=== PATIENT | female | born 1975 | race Two or more races ===

== ENCOUNTER 2020-04-09 16:56 | Inpatient (IN) | payer MEDICAID ==
[~2020-04-09] VITALS: Ht 162.6 cm; Wt 41.7 kg
--- NOTE | 2020-04-09 17:24 | NUR ---
RHIANNA MALLORY AT BEDSIDE FOR EVAL.
[2020-04-09] MEDS ORDERED: ACETAMINOPHEN ES 500 MG TABLET PO ONE (17:30)
[2020-04-09] MEDS ORDERED: VANCOMYCIN 1 GM in IV D5W 250 ML IV ONE (17:30)
[2020-04-09] MEDS ORDERED: IV NS 0.9% 1,000 ML BAG IV ONE (17:30)
[2020-04-09] MEDS ORDERED: LISI-603 PO (17:59)
[2020-04-09] MEDS ORDERED: TOPI200T PO (17:59)
[2020-04-09] MEDS ORDERED: HIV MEDS (17:59)
[2020-04-09] MEDS ORDERED: FERR325T28 PO (17:59)
[2020-04-09] MEDS ORDERED: ACETAMINOPHEN ES 500 MG TABLET ONE (17:59)
[2020-04-09] MEDS ORDERED: CLON2TAB11 PO (17:59)
[2020-04-09 18:02] LABS: BASOPHILS % (AUTO) 0.2 % (0.0-2.0); EOSINOPHILS % (AUTO) 2.8 % (0.0-6.0); HEMATOCRIT 25 % (33-45); HEMOGLOBIN 7.7 g/dL (11.5-14.8); LYMPHOCYTES # (AUTO) 1.6 /CMM (0.8-4.8); LYMPHOCYTES % (AUTO) 13.9 % (20.0-44.0); MEAN CORPUSCULAR HGB CONC 30 g/dl (31.0-36.0); MEAN CORPUSCULAR VOLUME 72 fL (82-100); MONOCYTES # (AUTO) 0.8 /CMM (0.1-1.30); MONOCYTES % (AUTO) 6.9 % (2.0-12.0); NEUTROPHILS % (AUTO) 76.2 % (43.0-81.0); PLATELET COUNT (AUTO) 508 /CMM (150-450); WHITE BLOOD COUNT (AUTO) 11.8 K/uL (4.3-11.0)
[2020-04-09 18:14] LABS: CALCIUM, SERUM 7.7 mg/dL (8.5-10.1); CREATININE 0.8 mg/dL (0.6-1.3); POTASSIUM 3.4 mmol/L (3.5-5.1)
[2020-04-09 18:20] LABS: ALBUMIN 1.6 g/dL (3.4-5.0); BILIRUBIN,DIRECT 0.1 mg/dL (0.0-0.2); BILIRUBIN,TOTAL 0.1 mg/dL (0.2-1.0); TOTAL PROTEIN, SERUM 6.6 g/dL (6.4-8.2)
--- NOTE | 2020-04-09 18:35 | NUR ---
PT TO RADIOLOGY FOR R LOWER EXTREMITY CT SCAN
[2020-04-09] MEDS ORDERED: ONDANSETRON HCL/PF 4 MG/2 ML VIAL IV ONE (19:00)
[2020-04-09] MEDS ORDERED: MORPHINE SULFATE INJ 2 MG/ML DISP.SYRIN IV ONE (19:00)
--- NOTE | 2020-04-09 19:15 | NUR ---
Endorsed to Kailee PEREZ for continuity of care
[2020-04-09] MEDS ORDERED: ONDANSETRON HCL/PF 4 MG/2 ML VIAL ONE (19:27)
[2020-04-09] MEDS ORDERED: MORPHINE SULFATE INJ 4 MG/ML DISP.SYRIN ONE (19:27)
--- NOTE | 2020-04-09 19:57 | NUR ---
lab called regarding negative covid result.
--- NOTE | 2020-04-09 20:39 | NUR ---
REPORT GIVEN TO ANA KAMARA FOR DYLON
[2020-04-09] MEDS ORDERED: Z GUARD REMEDY 2 OZ OINT TP PRN (21:00)
[2020-04-09] MEDS ORDERED: IV NS 0.9% 1,000 ML IV PRN (21:00)
[2020-04-09] MEDS ORDERED: MAG HYDROX/AL HYDROX/SIMETH 30 ML UDC PO PRN (21:00)
[2020-04-09] MEDS ORDERED: ZOLPIDEM TARTRATE 5 MG TABLET PO PRN (21:00)
[2020-04-09] MEDS ORDERED: ACETAMINOPHEN 325 MG TABLET PO PRN (21:00)
[2020-04-09] MEDS ORDERED: ONDANSETRON HCL/PF 4 MG/2 ML VIAL IVP PRN (21:00)
--- NOTE | 2020-04-09 21:02 | NUR ---
PT TRANSFERRED TO ROOM IN STABLE CONDITION
[2020-04-09 21:21] LABS: BAND % (MANUAL) 2 % (0.0-5.0); EOSINOPHILS % (MANUAL) 3 % (0-4); LYMPHOCYTES % (MANUAL) 11 % (16-48); MONOCYTES % (MANUAL) 6 % (0-11.0); NEUTROPHILS % (MANUAL) 78 (42-76)
[2020-04-09] MEDS ORDERED: SOD FERRIC GLUC 125 MG in IV NS 0.9% 100 ML IV ONE (21:30)
--- NOTE | 2020-04-09 21:30 | NUR ---
ADMITTING NOTES ADMITTED PATIENT, TRANSPORTED FROM ER, AWAKE ALERT ORIENTED X4, NO SIGNS OF ACUTE CARDIAC OR RESPIRATORY DISTRESS NOTED, ADMITTING PROCESS INITIATED, SKIN ASSESSMENT DONE AND PHOTOS TAKEN PLACED IN PATIENT'S CHART. ORIENTED TO UNIT AND THE USE OF CALL LIGHT. PERIPHERAL IV ACCESS INTACT AND PATENT. DENIES SEVERE PAIN, PAIN IS TOLERABLE AT THIS TIME. KEEP CLEAN WARM DRY AND COMFORTABLE. ASPIRATION PRECAUTION EMPHASIZED. ALL NEEDS ANTICIPATED. WILL ENDORSE TO AM NURSE FOR CONTINUITY OF CARE.
[2020-04-09 22:30] VITALS: BP 143/87
[2020-04-09] MEDS ORDERED: clonazePAM 2 MG TABLET PO PRN (22:30)
[2020-04-09 22:57] VITALS: BP 143/87
[2020-04-09] MEDS: PANTOPRAZOLE 40 MG VIAL IV SCH (23:07)
--- NOTE | 2020-04-09 23:31 | NUR ---
RN NOTES SPOKE WITH THE [facility] PHARMACIST TO CHANGE THE TIME FOR THE FERRLECIT 125 MG IV ORDER, [facility]HOU[facility] IS CLOSED AT THIS TIME. PHARMACIST WILL MODIFY THE TIME.
[2020-04-10] MEDS ORDERED: VANCOMYCIN 1 GM VIAL ONE (04:23)
[2020-04-10] MEDS: HYDROMORPHONE INJ 2 MG/ML DISP.SYRIN IV PRN ×3 (04:33→20:05)
[2020-04-10] MEDS ORDERED: VANCOMYCIN 1 GM in IV D5W 250 ML IV SCH ×4 (06:00)
[2020-04-10] MEDS ORDERED: VANCOMYCIN 1 GM in IV D5W 250ml IV SCH ×2 (06:00→09:00)
[2020-04-10 06:37] LABS: BASOPHILS % (AUTO) 0.3 % (0.0-2.0); LYMPHOCYTES # (AUTO) 1.1 /CMM (0.8-4.8); MONOCYTES # (AUTO) 0.4 /CMM (0.1-1.30); MONOCYTES % (AUTO) 5.4 % (2.0-12.0)
[2020-04-10 06:58] LABS: BILIRUBIN,TOTAL 0.1 mg/dL (0.2-1.0); CALCIUM, SERUM 7.2 mg/dL (8.5-10.1); CREATININE 0.7 mg/dL (0.6-1.3); MAGNESIUM 1.7 mg/dL (1.8-2.4); PHOSPHORUS 2.3 mg/dL (2.5-4.9); POTASSIUM 3.5 mmol/L (3.5-5.1)
[2020-04-10 07:08] LABS: ALBUMIN 1.3 g/dL (3.4-5.0)
--- NOTE | 2020-04-10 07:18 | NUR ---
MS RN NOTES ALL NEEDS ATTENDED AND MET, ABLE TO REST AND SLEPT AT INTERVALS. NO SIGNS OF DISTRESS NOTED. IV ACCESS ON THE RIGHT UPPER ARM WAS OUT, RE INSERTED A NEW SITE AT LEFT FOREARM G#24 PER PATIENT REQUEST. SAFETY MEASURES IN PLACE, ASPIRATION PRECAUTION EMPHASIZED. CALL LIGHT WITHIN EASY REACH. ENDORSED TO AM NURSE FOR CONTINUITY OF CARE.
--- NOTE | 2020-04-10 07:40 | NUR ---
MS RN NOTES LAB CALLED WITH CRITICAL RESULT FOR LACTIC ACID OF 2.6 SOON DOCTORS LIST IS READY WILL NOTIFY .
[2020-04-10 07:50] LABS: EOSINOPHILS % (AUTO) 2.8 % (0.0-6.0); HEMATOCRIT 24 % (33-45); HEMOGLOBIN 7.4 g/dL (11.5-14.8); MEAN CORPUSCULAR HGB CONC 31 g/dl (31.0-36.0); MEAN CORPUSCULAR VOLUME 72 fL (82-100); NEUTROPHILS # (AUTO) 6.4 /CMM (1.8-8.9); NEUTROPHILS % (AUTO) 78.5 % (43.0-81.0); PLATELET COUNT (AUTO) 448 /CMM (150-450); RED BLOOD CELL COUNT(AUTO) 3.33 MIL/uL (4.0-5.2); WHITE BLOOD COUNT (AUTO) 8.2 K/uL (4.3-11.0)
[2020-04-10 08:00] VITALS: BP 114/83
--- NOTE | 2020-04-10 08:03 | NUR ---
MS RN OPENING NOTES RECEIVED PATIENT IN BED, AWAKE, A/O X 4. PATIENT IS ON ROOM AIR; BREATHING IS EVEN AND UNLABORED; NO SOB PRESENT AT THIS TIME. MILD PAIN AT THE MOMENT. LFA IV ACCESS G# 24 WITH RUNNING NS AT 100 MLS/HR. SAFETY PRECAUTIONS IN PLACE; BED IN LOW POSITION AND LOCKED, RAILS UP X3, CALL LIGHT WITHIN REACH. WILL CONTINUE TO MONITOR PATIENT.
--- NOTE | 2020-04-10 08:50 | NUR ---
MS RN NOTES 0600 VANCO RUNNING BUT LOOKS LIKE HAS NEVER BEEN SCANNED.
[2020-04-10] MEDS: FERROUS SULFATE (325 MG) 325 MG/TAB TABLET PO SCH (08:59)
[2020-04-10] MEDS ORDERED: TOPIRAMATE PO SCH (09:00)
[2020-04-10] MEDS: HYDROCODONE/APAP 5/325MG TABLET PO PRN (09:00)
[2020-04-10] MEDS ORDERED: LISINOPRIL (5MG) 5 MG TABLET PO SCH (09:00)
--- NOTE | 2020-04-10 09:04 | NUR ---
MS RN NOTES PATIENT COMPLAINING OF PAIN 12/16. PRN NORCO 5-325 ADMINISTERED FOR PAIN IN THE LEG. WILL REASSESS.
[2020-04-10] MEDS ORDERED: SOD FERRIC GLUC 125 MG in IV NS 0.9% 100 ML IV ONE ×2 (10:00→14:00)
[2020-04-10] MEDS ORDERED: Biktarvy XX SCH (10:00)
[2020-04-10] MEDS ORDERED: MAGNESIUM OXIDE 400 MG TABLET PO ONE (10:30)
[2020-04-10] MEDS ORDERED: MORPHINE SULFATE INJ 2 MG/ML DISP.SYRIN SQ PRN (11:00)
[2020-04-10] MEDS ORDERED: LISI2.5T2 PO (11:11)
[2020-04-10] MEDS ORDERED: FAMO-131 PO (11:11)
[2020-04-10] MEDS ORDERED: NITR100C PO (11:11)
[2020-04-10] MEDS ORDERED: ASCO500T21 PO (11:11)
[2020-04-10] MEDS ORDERED: DOCU-141 PO (11:11)
[2020-04-10] MEDS ORDERED: LORA-259 PO (11:11)
[2020-04-10] MEDS ORDERED: LEVE1000 PO (11:11)
[2020-04-10] MEDS ORDERED: BICT1TAB PO (11:11)
[2020-04-10] MEDS: ENSURE ENLIVE CHOC 237 ML CAN PO SCH ×2 (13:00→17:00)
[2020-04-10 16:00] VITALS: BP 101/65
[2020-04-10] MEDS ORDERED: K PHOS NEUTRAL 250 MG TABLET PO ONE (16:00)
[2020-04-10] MEDS: VANCOMYCIN 1 GM in IV D5W 250ml IV SCH (17:04)
[2020-04-10] MEDS: HYDROCODONE/APAP 10/325MG TABLET PO PRN (17:19)
--- NOTE | 2020-04-10 18:54 | NUR ---
MS RN CLOSING NOTES PATIENT IN BED, AWAKE, A/O X 4. PATIENT IS ON ROOM AIR; BREATHING IS EVEN AND UNLABORED; NO SOB PRESENT DURI NG SHIFT. PAIN TREATED WITH PRN MEDICATION DURING SHIFT. LFA IV ACCESS G# 24 WITH RUNNING NS AT 100 MLS/HR. ALL NEEDS ATTENDED THROUGHOUT THE DAY. SAFETY PRECAUTIONS IN PLACE; BED IN LOW POSITION AND LOCKED, RAILS UP X3, CALL LIGHT WITHIN REACH. WILL ENDORSE TO MARKETING OFFICER NURSE.
[2020-04-10] MEDS ORDERED: SILVER SULFADIAZINE CREAM 400 GM JAR TP SCH (19:30)
--- NOTE | 2020-04-10 19:30 | NUR ---
ms rn opening note received patient in bed. a/ox4. tolerating room air. respirations even and unlabored. no s/s sob noted. c/o pain at this time. informed her will need to have department chairperson obtain vitals and check medication list if it is time for pain medication. patient acknowledged. refused labs as she would like her pain medication. informed lab will call them after administering pain medication. in no apparent distress. iv access in LFA#24 patent and saline locked. patient states there is pain, will change iv site. bed is low and locked, hob elevated in semi fowlers, side rails up x2. call light within reach. will continue to monitor.
[2020-04-10] MEDS ORDERED: CEFTRIAXONE 1 G VIAL ONE (19:48)
[2020-04-10] MEDS: CEFTRIAXONE 1 G in IV D5W 50 ML IV SCH (19:51)
--- NOTE | 2020-04-10 19:52 | NUR ---
MS RN NOTE CHARGE NURSE OVERRIDE MEDICATION FOR ROCEPHIN 1GM FROM [facility] D/T IN HOUSE PHARM[facility]Y NOT HERE AFTER ORDER WAS PLACED. SILVADENE ORDER FAXED TPO NURSING PEN MAKER, AWAITING FOR MEDICATION. WILL CONTINUE TO MONITOR.
[2020-04-10 20:00] VITALS: BP 112/74
[2020-04-10] MEDS: PANTOPRAZOLE 40 MG VIAL IV SCH (20:01)
[2020-04-10] MEDS: IV NS 0.9% 1,000 ML IV PRN (20:04)
[2020-04-10 20:10] VITALS: BP 112/74
--- NOTE | 2020-04-10 21:35 | NUR ---
ms rn note nursing supervisor machine workers stated the medication is not available in night locker. will need to get from pharmacy tomorrow. will endorse to next shift. will continue to monitor.
[2020-04-11] MEDS: HYDROMORPHONE INJ 2 MG/ML DISP.SYRIN IV PRN ×6 (00:59→22:39)
--- NOTE | 2020-04-11 00:59 | NUR ---
ms rn note administered prn Dilaudid 2mg for pain 10/10 , generalized. will continue to monitor.
[2020-04-11] MEDS: IV NS 0.9% 1,000 ML IV PRN ×2 (05:56→19:31)
--- NOTE | 2020-04-11 06:25 | NUR ---
ms rn closing note patient in bed. a/ox4. tolerating room air. no resp distress. managed pain with Dilaudid throughout shift. no distress noted. iv access in RFA#20 running NS @150ml/hr. bed remains low and locked, hob elevated in semi fowlers, side rails up x2. call light within reach. will endorse to next shift.
--- NOTE | 2020-04-11 06:46 | NUR ---
ms rn note called lab to run vanco trough needed for vanco dose scheduled at 0600. will continue to monitor.
--- NOTE | 2020-04-11 07:09 | NUR ---
ms rn note endorse to AM shift to follow up on vanco trough and hang vanco.
[2020-04-11 07:26] LABS: CALCIUM, SERUM 7.6 mg/dL (8.5-10.1); CREATININE 0.6 mg/dL (0.6-1.3); MAGNESIUM 1.8 mg/dL (1.8-2.4); PHOSPHORUS 3.2 mg/dL (2.5-4.9); POTASSIUM 3.6 mmol/L (3.5-5.1)
--- NOTE | 2020-04-11 07:53 | NUR ---
RN OPENING NOTE Patient is resting in bed, A/O x4, showing no signs of acute distress or SOB, stable on RA. IV line in the RFA#20g clean and intact flushing well. Patient has no complaints of pain at this time. Bed is in lowest position, side rails x3 in upright position, call light is within reach, fall safety and aspiration precautions enforced. Will continue with plan of care.
[2020-04-11 08:00] VITALS: BP 106/75
[2020-04-11 08:05] LABS: BASOPHILS % (AUTO) 0.2 % (0.0-2.0); EOSINOPHILS % (AUTO) 2.3 % (0.0-6.0); HEMATOCRIT 24 % (33-45); HEMOGLOBIN 7.3 g/dL (11.5-14.8); LYMPHOCYTES # (AUTO) 1.2 /CMM (0.8-4.8); LYMPHOCYTES % (AUTO) 14.4 % (20.0-44.0); MEAN CORPUSCULAR HGB CONC 31 g/dl (31.0-36.0); MEAN CORPUSCULAR VOLUME 71 fL (82-100); MONOCYTES # (AUTO) 0.4 /CMM (0.1-1.30); MONOCYTES % (AUTO) 5.1 % (2.0-12.0); NEUTROPHILS # (AUTO) 6.5 /CMM (1.8-8.9); PLATELET COUNT (AUTO) 507 /CMM (150-450); RED BLOOD CELL COUNT(AUTO) 3.33 MIL/uL (4.0-5.2); WHITE BLOOD COUNT (AUTO) 8.4 K/uL (4.3-11.0)
[2020-04-11 08:09] LABS: BILIRUBIN,URINE NEGATIVE (NEGATIVE); BLOOD, URINE MODERATE Ery/uL (NEGATIVE); COLOR,URINE YELLOW (YELLOW); KETONES,URINE NEGATIVE (NEGATIVE); LEUKOCYTE ESTERASE ,URINE TRACE (NEGATIVE); NITRITE, URINE NEGATIVE (NEGATIVE); PH,URINE 6.5 (5.0-8.0); PROTEIN,URINE TRACE mg/dl (NEGATIVE); UGLUCOSE NEGATIVE (NEGATIVE); UROBILINOGEN,URINE 0.2 EU/dL (0.2)
[2020-04-11 08:12] LABS: APPEARANCE,URINE SLIGHTLY HAZY (CLEAR)
[2020-04-11 08:42] LABS: BACTERIA,URINE Many /HPF (None Seen); MUCUS,URINE Few /LPF (None Seen); SQUAMOUS EPITHELIAL CELL,UR Moderate /HPF (None Seen); WBC,URINE 20-30 /HPF (0-3)
[2020-04-11] MEDS: FERROUS SULFATE (325 MG) 325 MG/TAB TABLET PO SCH (08:55)
[2020-04-11] MEDS: VANCOMYCIN 1 GM in IV D5W 250ml IV SCH ×2 (08:55→17:17)
[2020-04-11] MEDS: ENSURE ENLIVE CHOC 237 ML CAN PO SCH ×3 (08:59→17:17)
[2020-04-11] MEDS: SILVER SULFADIAZINE CREAM 25 GM TUBE TP SCH ×2 (09:17→17:18)
[2020-04-11] MEDS ORDERED: IOHEXOL-300 100 ML VIAL IV ONE (11:47)
[2020-04-11] MEDS ORDERED: IV NS 0.9% 250 ML IV ONE (11:48)
[2020-04-11] MEDS: FAMOTIDINE (20 MG) 20 MG TABLET PO SCH (12:18)
[2020-04-11] MEDS: LEVETIRACETAM (250 MG) 250 MG TABLET PO SCH ×2 (12:18→20:55)
[2020-04-11 16:00] VITALS: BP_SYST 125; BP_DIAS 82; BP_DIAS 87
--- NOTE | 2020-04-11 18:34 | NUR ---
RN NOTE DILAUDID REASSESSMENT NOT DONE BY PM SHIFT AT 0503. DOCUMENTED "NOT DONE"
[2020-04-11] MEDS: CEFTRIAXONE 1 G in IV D5W 50 ML IV SCH (18:41)
--- NOTE | 2020-04-11 19:35 | NUR ---
RN CLOSING NOTE Patient is resting in bed, A/O x4, showing no signs of acute distress or SOB, stable on RA. IV line in the RFA#20g clean and intact flushing well. All patient needs met, all due medications given, wound care completed as ordered. Bed is in lowest position, side rails x3 in upright position, call light is within reach, fall safety and aspiration precautions enforced. Will endorse to motor vehicle lecturer.
[2020-04-11 20:00] VITALS: BP 115/74
--- NOTE | 2020-04-11 20:08 | NUR ---
MS/RN OPENING NOTE Patient awake in bed, A/O x4, ambulatory. Breathing even, clear, unlabored, on room air. No acute distress or SOB noted. Skin warm, pink, dry, appropriate for ethnicity. Edema noted on right lower extremity and right hip. IV noted in SOTERO midline 18g running NS @ 150 ml/hr, no infiltration. IV site left shoulder 22g saline locked, patent and intact. Bed in low position, wheels locked, side rails up x2, call light within reach.
[2020-04-11] MEDS: PANTOPRAZOLE 40 MG VIAL IV SCH (20:55)
[2020-04-11] MEDS: DOCUSATE SODIUM 100 MG CAPSULE PO SCH (21:09)
[2020-04-11] MEDS: HYDROCODONE/APAP 10/325MG TABLET PO PRN (21:09)
--- NOTE | 2020-04-11 21:14 | NUR ---
MS/RN NOTE Patient c/o pain level 9, generalized pain. Administered PRN norco 10mg as ordered. BP 115/74 P80. Will continue to monitor.
[2020-04-11 22:51] VITALS: BP 115/74
--- NOTE | 2020-04-11 23:20 | NUR ---
MS/RN NOTE Patient c/o pain level 10, generalized pain. Administered PRN dilaudid 2mg as ordered. VSS. Will continue to monitor.
[2020-04-12] MEDS: HYDROMORPHONE INJ 2 MG/ML DISP.SYRIN IV PRN ×6 (03:23→23:52)
--- NOTE | 2020-04-12 03:23 | NUR ---
MS/RN NOTE Patient c/o pain level 9, generalized pain. Administered PRN dilaudid 2mg as ordered. VSS. Will continue to monitor.
[2020-04-12] MEDS: IV NS 0.9% 1,000 ML IV PRN ×2 (04:31→23:51)
[2020-04-12] MEDS: VANCOMYCIN 1 GM in IV D5W 250ml IV SCH ×2 (05:41→17:41)
--- NOTE | 2020-04-12 07:14 | NUR ---
MS/RN CLOSING NOTE Patient awake in bed, A/O x4, ambulatory. Breathing even, clear, unlabored, on room air. Edema noted on right lower extremity and right hip. IV noted in SOTERO midline 18g running NS @ 150 ml/hr, no infiltration. IV site left shoulder 22g saline locked, patent and intact. Pt c/o pain level 10, generalized. Administered PRN dilaudid as ordered. VSS. Bed in low position, wheels locked, side rails up x2, call light within reach.
--- NOTE | 2020-04-12 07:30 | NUR ---
m/s dedicated intermodal truck driver: initial assessment received pt in bed awake, a/ox4 with dx: right hip cellulitis. rle still with redness, swelling, and with dry lesions on lower leg. kept ble elevated. instructed to call for assistance. will continue to monitor.
[2020-04-12 07:32] LABS: BASOPHILS % (AUTO) 0.2 % (0.0-2.0); EOSINOPHILS % (AUTO) 3.4 % (0.0-6.0); HEMATOCRIT 23 % (33-45); LYMPHOCYTES # (AUTO) 1.2 /CMM (0.8-4.8); LYMPHOCYTES % (AUTO) 16.9 % (20.0-44.0); MEAN CORPUSCULAR HGB CONC 30 g/dl (31.0-36.0); MEAN CORPUSCULAR VOLUME 72 fL (82-100); MONOCYTES # (AUTO) 0.4 /CMM (0.1-1.30); MONOCYTES % (AUTO) 5.8 % (2.0-12.0); NEUTROPHILS # (AUTO) 5.4 /CMM (1.8-8.9); NEUTROPHILS % (AUTO) 73.7 % (43.0-81.0); PLATELET COUNT (AUTO) 456 /CMM (150-450); RED BLOOD CELL COUNT(AUTO) 3.24 MIL/uL (4.0-5.2); WHITE BLOOD COUNT (AUTO) 7.3 K/uL (4.3-11.0)
[2020-04-12 07:43] LABS: CALCIUM, SERUM 7.6 mg/dL (8.5-10.1); CREATININE 0.6 mg/dL (0.6-1.3); MAGNESIUM 1.9 mg/dL (1.8-2.4); PHOSPHORUS 3.4 mg/dL (2.5-4.9); POTASSIUM 3.8 mmol/L (3.5-5.1)
[2020-04-12 08:00] VITALS: BP 133/82
[2020-04-12] MEDS: ASCORBIC ACID 500 MG TABLET PO SCH (08:06)
[2020-04-12] MEDS: LEVETIRACETAM (250 MG) 250 MG TABLET PO SCH ×2 (08:06→21:17)
[2020-04-12] MEDS: FAMOTIDINE (20 MG) 20 MG TABLET PO SCH (08:06)
[2020-04-12] MEDS: FERROUS SULFATE (325 MG) 325 MG/TAB TABLET PO SCH (08:06)
[2020-04-12 08:07] LABS: *BASOS 0 % (Not Estab.); *EOS 2 % (Not Estab.); *EOS, ABSOLUTE 0.2 x10E3/uL (0.0-0.4); *HCT 23.7 % (34.0-46.6); *HGB 6.8 g/dL (11.1-15.9); *IMMATURE GRANULOCYTES 1 % (Not Estab.); *IMMATURE GRANULOCYTES(ABS) 0.1 x10E3/uL (0.0-0.1); *LYMPHOCYTES 12 % (Not Estab.); *LYMPHS, ABSOLUTE 1.2 x10E3/uL (0.7-3.1); *MCH 21.6 pg (26.6-33.0); *MCHC 28.7 g/dL (31.5-35.7); *MCV 75 fL (79-97); *MONOCYTES 5 % (Not Estab.); *MONOS, ABSOLUTE 0.5 x10E3/uL (0.1-0.9); *NEUTROPHILS 80 % (Not Estab.); *NEUTROPHILS, ABSOLUTE 7.3 x10E3/uL (1.4-7.0); *PLT 487 x10E3/uL (150-450); *RBC 3.15 x10E6/uL (3.77-5.28); *RDW 15.8 % (11.7-15.4)
[2020-04-12] MEDS: ENSURE ENLIVE CHOC 237 ML CAN PO SCH ×3 (08:07→16:09)
[2020-04-12] MEDS: SILVER SULFADIAZINE CREAM 25 GM TUBE TP SCH ×2 (08:07→17:22)
[2020-04-12 09:06] LABS: BAND % (MANUAL) 8 % (0.0-5.0); EOSINOPHILS % (MANUAL) 2 % (0-4); LYMPHOCYTES % (MANUAL) 10 % (16-48); MONOCYTES % (MANUAL) 8 % (0-11.0); NEUTROPHILS % (MANUAL) 72 (42-76)
[2020-04-12] MEDS ORDERED: PANTOPRAZOLE 40 MG TABLET.DR PO SCH (09:21)
--- NOTE | 2020-04-12 09:30 | NUR ---
m/s brownfield redevelopment specialist: md visit seen and examined by dr. michel at this time. pt for surgical consult (dr. valle). per dr. michel, dr. valle is aware. updated plan of care and pt verbalized understanding.
--- NOTE | 2020-04-12 09:55 | NUR ---
WOUND CARE CONSULT: PT IS EXTREMELY THIN AND BONY WITH RAISED FLUCTUANT AREA TO RT HIP AND REDNESS, EDEMA AND SKIN DISCOLORATION/PEELING SKIN TO RT LOWER LEG AND FOOT, PRESENT ON ADMISSION. SURGICAL CONSULT IN PLACE WITH DR ELIZABETH PER DR GREEN AND DPM CONSULT REQUESTED WITH DR LIMON. DR LIMON AWARE OF CONSULT REQUEST. WILL SEE PRN. RIVAS IN AGREEMENT WITH PLAN OF CARE. Addendum: 04/12/20 at 0958 by PILO BOATENG WNDNU Amended: Links added.
[2020-04-12] MEDS: HYDROCODONE/APAP 10/325MG TABLET PO PRN (10:41)
--- NOTE | 2020-04-12 10:51 | NUR ---
Front Office Secretary consult for patient requested by Emerita Diaz NP for patient's condition. Patient was asleep when this SW entered the room. Patient woke up for a second and stated "I just want to sleep, can you come back?" SW to return at a later hour to conduct SW assessment.
[2020-04-12 11:07] LABS: *% CD 4 POS. LYMPH 26.3 % (30.8-58.5); *% CD 8 POS. LYMPH 55.3 % (12.0-35.5); *ABSOLUTE CD 4 HELPER 316 /uL (359-1519); *ABSOLUTE CD 8 SUPPRESSOR 664 /uL (109-897); *CD4/CD8 RATIO 0.48 (0.92-3.72)
--- NOTE | 2020-04-12 13:30 | NUR ---
m/s stave hewer: notes sounds asleep at this time. no distress noted. will continue to monitor.
--- NOTE | 2020-04-12 15:00 | NUR ---
m/s palliative senior np: dpm consult seen and examined by dr. christianson at this time.
[2020-04-12 16:00] VITALS: BP 120/75
--- NOTE | 2020-04-12 19:00 | NUR ---
m/s supervisor grading: notes report given to praveen nelson) for continuity of care. Addendum: 04/12/20 at 1909 by YASMIN LYNN LVN correction on above charting: m/s lizeth: notes report given to cricket nelson) for continuity of care.
--- NOTE | 2020-04-12 19:27 | NUR ---
RN OPENING NOTES PATIENT RECEIVED RESTING IN BED A/O X 4. STABLE ON RA WITH BREATHING EVEN AND UNLABORED, NO SOB NOTED. NO SIGNS OF ACUTE DISTRESS. NO COMPLAINTS OF PAIN OR DISCOMFORT AT THE MOMENT. MIDLINE LOCATED ON SOTERO #18 RUNNING NS @ 150 ML/HR. SAFETY PRECAUTIONS IN PLACE WITH BED IN LOWEST POSITION, CALL LIGHT WITHIN REACH, BREAKS ON, SIDE RAILS UP. WILL CONTINUE TO MONITOR THROUGHOUT THE NIGHT.
[2020-04-12] MEDS: CEFTRIAXONE 1 G in IV D5W 50 ML IV SCH (19:31)
[2020-04-12 20:00] VITALS: BP 129/79
[2020-04-12] MEDS: PANTOPRAZOLE 40 MG TABLET.DR PO SCH (21:16)
[2020-04-12] MEDS: DOCUSATE SODIUM 100 MG CAPSULE PO SCH (21:17)
[2020-04-13] MEDS: HYDROMORPHONE INJ 2 MG/ML DISP.SYRIN IV PRN ×5 (03:55→20:04)
[2020-04-13] MEDS: VANCOMYCIN 1 GM in IV D5W 250ml IV SCH ×2 (05:23→17:09)
--- NOTE | 2020-04-13 06:55 | NUR ---
RN CLOSING NOTES PATIENT RESTING IN BED A/O X 4. STABLE ON RA WITH BREATHING EVEN AND UNLABORED, NO SOB NOTED. NO SIGNS OF ACUTE DISTRESS. NO COMPLAINTS OF PAIN OR DISCOMFORT AT THE MOMENT. MIDLINE LOCATED ON SOTERO #18 RUNNING NS @ 150 ML/HR. SAFETY PRECAUTIONS IN PLACE WITH BED IN LOWEST POSITION, CALL LIGHT WITHIN REACH, BREAKS ON, SIDE RAILS UP. ALL NEEDS ATTENDED TO. WILL ENDORSE TO ONCOMING SHIFT ABOUT DYLON.
[2020-04-13] MEDS: IV NS 0.9% 1,000 ML IV PRN ×3 (07:03→23:52)
--- NOTE | 2020-04-13 07:25 | NUR ---
Patient received pt in bed awake, a/ox4 with dx: right hip cellulitis. RLE noted with redness, swelling, and with dry lesions on lower leg.Patient requested pain medication . Pain stated 8-03/18 RLE. Instructed to call for assistance.Call light within reach. Will continue to monitor.
[2020-04-13 08:00] VITALS: BP 130/89
[2020-04-13] MEDS: ENSURE ENLIVE CHOC 237 ML CAN PO SCH ×3 (08:00→16:55)
[2020-04-13] MEDS: FERROUS SULFATE (325 MG) 325 MG/TAB TABLET PO SCH (08:14)
[2020-04-13] MEDS: FAMOTIDINE (20 MG) 20 MG TABLET PO SCH (08:14)
[2020-04-13] MEDS: ASCORBIC ACID 500 MG TABLET PO SCH (08:14)
[2020-04-13] MEDS: LEVETIRACETAM (250 MG) 250 MG TABLET PO SCH ×2 (08:14→21:09)
--- NOTE | 2020-04-13 09:10 | NUR ---
Seen by Radames Valdivia
[2020-04-13] MEDS: SILVER SULFADIAZINE CREAM 25 GM TUBE TP SCH ×2 (12:19→16:55)
--- NOTE | 2020-04-13 13:38 | NUR ---
Blacksmith Hammer Operator Consult: SS consult requested by Emerita FAULKNER CAPACITY MANAGEMENT SPECIALIST for Drug Abuse. The pt. is a 44-year old Female on Med Surge seeking medical attention for worsening right foot swelling, per EMR. Upon SS consult, the pt. presented sitting on their bed eating lunch. The pt. was receptive to speaking with SW. The pt. appears unkempt, and emaciated. The pt. appears older than her age. The pt. is alert and oriented x 4 and with avoidant eye contact. The pt.s speech and thought content are WNL. The pt. mood is depressed and began to cry when discussing the drug use with SW. The pt. denies Hallucinations, and denies SI/HI. Pt. has fair insight and poor judgement. SW asked pt. regarding current drug use. Pt. expressed that she uses Heroin on a daily basis. Per pt. she has been using Heroin for the last 30 years. Patient /Patient stated, what's the point in quitting? SW asked pt. regarding how the drug use affects her life. Pt. began crying and stated I dont want to answer any more questions. SW provided space for pt. to cry. SW normalized and validated her emotional response. SW asked pt. if SW can leave Addiction Resources with pt. The patient nodded yes. JOI informed pt. that SW will be available to support patient at a later time if desired. JOI provided the following resources to the pt.: [facility] Substance Abuse Self-Helpline ([facility]) ; [facility] [address] [facility] [id number] ; [facility] [address] [facility] [address] ; [facility] [address] [facility] [address] ; [facility] [address] [facility] [address] ; [facility] [address] [facility] [address] ; [facility] [address] [facility] [id number] ; [facility] Abuse [facility]pl[facility] ; [facility] ; [facility]; [facility] [place]; [facility] [place]; [facility] [place] [facility] [place] Al[place]; [facility] [place]; [facility] [place]; [facility] [place]; [facility], [facility]. Tiffanie Osei; Alcoholics Anonymous -[facility]; Rahel ; Marijuana Anonymous [facility]; Narcotics Anonymous www.na.org.
[2020-04-13 16:00] VITALS: BP 129/89
[2020-04-13] MEDS: HYDROCODONE/APAP 5/325MG TABLET PO PRN (17:10)
--- NOTE | 2020-04-13 19:06 | NUR ---
Patient resting in bed . All needs attempt. SOTERO midline intact and patent, fluid running as ordered. Pain medication administrated around o'clock. Patient seen by Luly Alarcon for possible procedure tomorrow. Will endorse to next shift for DYLON .
--- NOTE | 2020-04-13 19:30 | NUR ---
RN OPENING NOTES Received patient awake on bed. For abscess I&D in AM. Witnessed consents signed by the patient. Instructed to keep on NPO at midnight, patient verbalized understanding. Kept on bed clean, dry and comfortable. Will continue to monitor accordingly.
[2020-04-13] MEDS: CEFTRIAXONE 1 G in IV D5W 50 ML IV SCH (19:38)
[2020-04-13 20:00] VITALS: BP 127/82
[2020-04-13 20:52] LABS: CALCIUM, SERUM 7.5 mg/dL (8.5-10.1); CREATININE 0.8 mg/dL (0.6-1.3); POTASSIUM 3.9 mmol/L (3.5-5.1)
[2020-04-13] MEDS: PANTOPRAZOLE 40 MG TABLET.DR PO SCH (21:09)
[2020-04-13] MEDS: DOCUSATE SODIUM 100 MG CAPSULE PO SCH (21:10)
[2020-04-13] MEDS: HYDROCODONE/APAP 10/325MG TABLET PO PRN (23:58)
[2020-04-14] MEDS: HYDROMORPHONE INJ 2 MG/ML DISP.SYRIN IV PRN ×6 (01:26→21:46)
[2020-04-14] MEDS: VANCOMYCIN 1 GM in IV D5W 250ml IV SCH ×2 (05:29→18:03)
--- NOTE | 2020-04-14 07:02 | NUR ---
RN CLOSING NOTES Pt asleep on bed, no new complaints noted within the shift. All nursing needs attended. Kept on bed clean, dry and comfortable. Endorsed.
[2020-04-14 08:00] VITALS: BP 132/78
[2020-04-14] MEDS: ENSURE ENLIVE CHOC 237 ML CAN PO SCH ×4 (08:00→17:00)
[2020-04-14] MEDS: FAMOTIDINE (20 MG) 20 MG TABLET PO SCH (08:38)
[2020-04-14] MEDS: LEVETIRACETAM (250 MG) 250 MG TABLET PO SCH ×2 (08:38→21:40)
[2020-04-14] MEDS: SILVER SULFADIAZINE CREAM 25 GM TUBE TP SCH ×2 (08:39→17:27)
[2020-04-14] MEDS: FERROUS SULFATE (325 MG) 325 MG/TAB TABLET PO SCH (08:39)
[2020-04-14] MEDS: ASCORBIC ACID 500 MG TABLET PO SCH (08:39)
[2020-04-14 15:30] LABS: BASOPHILS % (AUTO) 0.4 % (0.0-2.0); CALCIUM, SERUM 7.8 mg/dL (8.5-10.1); CREATININE 0.6 mg/dL (0.6-1.3); EOSINOPHILS % (AUTO) 2.8 % (0.0-6.0); HEMATOCRIT 25 % (33-45); HEMOGLOBIN 7.9 g/dL (11.5-14.8); LYMPHOCYTES # (AUTO) 1.3 /CMM (0.8-4.8); LYMPHOCYTES % (AUTO) 16.5 % (20.0-44.0); MAGNESIUM 2.1 mg/dL (1.8-2.4); MEAN CORPUSCULAR HGB CONC 31 g/dl (31.0-36.0); MEAN CORPUSCULAR VOLUME 72 fL (82-100); MONOCYTES # (AUTO) 0.3 /CMM (0.1-1.30); MONOCYTES % (AUTO) 3.9 % (2.0-12.0); NEUTROPHILS # (AUTO) 5.8 /CMM (1.8-8.9); NEUTROPHILS % (AUTO) 76.4 % (43.0-81.0); PHOSPHORUS 3.1 mg/dL (2.5-4.9); PLATELET COUNT (AUTO) 453 /CMM (150-450); POTASSIUM 4.6 mmol/L (3.5-5.1); RED BLOOD CELL COUNT(AUTO) 3.55 MIL/uL (4.0-5.2); WHITE BLOOD COUNT (AUTO) 7.6 K/uL (4.3-11.0)
[2020-04-14 16:00] VITALS: BP 128/76
[2020-04-14 17:30] LABS: BAND % (MANUAL) 3 % (0.0-5.0); EOSINOPHILS % (MANUAL) 2 % (0-4); LYMPHOCYTES % (MANUAL) 13 % (16-48); MONOCYTES % (MANUAL) 5 % (0-11.0); NEUTROPHILS % (MANUAL) 77 (42-76)
--- NOTE | 2020-04-14 18:43 | NUR ---
rn notes patient remains on room air, no sob noted, a/o x3 and asks for pain medications round the clock. Refused PT. Plan is to have patient surgery tomorrow morning. HIV +. Bed at the lowest setting, call light within reach, side rails up x2.
[2020-04-14 19:00] VITALS: BP 113/69
--- NOTE | 2020-04-14 20:00 | NUR ---
MS LOW ALTITUDE AIR DEFENSE OFFICER INITIAL NOTES RECEIVED REPORT FROM AM NURSE JERMAINE AND SEEN PT IN BED RESTING WITH EYES CLOSED BUT AROUSE EASILY , WITH IVF OF NS AT 150ML/HR INFUSING ON HER RIGHT UPPER ARM MIDLINE GAUAGE 18 . NO SIGNS OF ANY ACUTE DISTRESS NOTED. KEPT HER WARM AND COMFORTABLE AT ALL TIMES. WILL CONTINUE MONITORING.
[2020-04-14] MEDS: IV NS 0.9% 1,000 ML IV PRN (20:27)
[2020-04-14] MEDS: CEFTRIAXONE 1 G in IV D5W 50 ML IV SCH (20:29)
[2020-04-14] MEDS: PANTOPRAZOLE 40 MG TABLET.DR PO SCH (21:40)
--- NOTE | 2020-04-14 21:40 | NUR ---
MS machining department supervisor notes routine med given as ordered then pt asking for her pain medication offered norco but she refused instead she wants Dilaudid 2 mg IVP for her wound on her right hip. Pt aware of her surgery romelia and i also told her that she will be NPO after MN .no signs of any acute distress noted. will continue monitoring. snacks also offered.
[2020-04-14] MEDS: DOCUSATE SODIUM 100 MG CAPSULE PO SCH (21:41)
[2020-04-15] VITALS (10 sets, daily range): BP systolic 104–117; BP diastolic 62–75
--- NOTE | 2020-04-15 | NUR ---
pilot plant operator notes pt sleeping at this time after pain meds given, breathing even and non-labored. IVF still infusing. will continue monitoring.
[2020-04-15] MEDS: HYDROMORPHONE INJ 2 MG/ML DISP.SYRIN IV PRN ×5 (02:12→20:26)
[2020-04-15] MEDS: IV NS 0.9% 1,000 ML IV PRN ×2 (05:01→14:32)
[2020-04-15 06:27] LABS: BASOPHILS # (AUTO) 0.1 /CMM (0.0-0.2); BASOPHILS % (AUTO) 0.8 % (0.0-2.0); EOSINOPHILS % (AUTO) 4.7 % (0.0-6.0); HEMATOCRIT 24 % (33-45); HEMOGLOBIN 7.5 g/dL (11.5-14.8); LYMPHOCYTES # (AUTO) 1.8 /CMM (0.8-4.8); LYMPHOCYTES % (AUTO) 20.6 % (20.0-44.0); MEAN CORPUSCULAR HGB CONC 32 g/dl (31.0-36.0); MEAN CORPUSCULAR VOLUME 72 fL (82-100); MONOCYTES # (AUTO) 0.5 /CMM (0.1-1.30); MONOCYTES % (AUTO) 5.5 % (2.0-12.0); NEUTROPHILS % (AUTO) 68.4 % (43.0-81.0); PLATELET COUNT (AUTO) 460 /CMM (150-450); RED BLOOD CELL COUNT(AUTO) 3.31 MIL/uL (4.0-5.2); WHITE BLOOD COUNT (AUTO) 8.7 K/uL (4.3-11.0)
[2020-04-15 07:05] LABS: CALCIUM, SERUM 7.6 mg/dL (8.5-10.1); CREATININE 0.9 mg/dL (0.6-1.3); MAGNESIUM 2.2 mg/dL (1.8-2.4); PHOSPHORUS 3.6 mg/dL (2.5-4.9); POTASSIUM 4.8 mmol/L (3.5-5.1)
--- NOTE | 2020-04-15 07:20 | NUR ---
ms sueding machine operator closing notes pt woke up around 5 because needs to draw blood for vanco trough, but pt refused to have any blood draw and even though i explained to her that she needs blood test before surgery and for her antibiotic .then patient agreed,. Blood drawn done then patient asking for her pain meds. offered norco tablet but she insisted to have pain shot instead even her blood pressure 106/64, she insist that her normal blood pressure. she also aware of her procedure today . refused to have sponges bath since last night and refused to wear pt gown. she stated that she's comfortable with blanket only. IVF ns at 150ml/hr infusing no redness noted. all due meds given and all needs met. kept her warm and comfortable at all times. place call light at reach. Pain shot given by another nurse tim IVP as ordered. will endorse to am nurse for continuity of care.
[2020-04-15] MEDS: VANCOMYCIN 1 GM in IV D5W 250ml IV SCH ×2 (07:22→17:13)
--- NOTE | 2020-04-15 07:45 | NUR ---
MS RN OPENING NOTES BEDSIDE ENDORSEMENT DONE. PATIENT IS IN BED SLEEPING BUT AROUSABLE VIA VERBAL AND TACTILE SENSATIONS, A/O X3-4, ABLE TO MAKE NEEDS KNOWN. BREATHING EVEN AND UNLABORED, TOLERATING ROOM AIR, NO ACUTE DISTRESS. NO COMPLAINT OF PAIN AT THIS TIME. SOTERO MIDLINE #18 INTACT AND PATENT. VANCO TROUGH AT 14, OK TO GIVE VANCOMYCIN IV INDICATED. SAFETY PRECAUTIONS IN PLACE: BED LOCKED AND ON LOWEST POSITION, SR UP X2, CALL LIGHT W/IN REACH. WILL CONTINUE TO MONITOR.
[2020-04-15] MEDS: ENSURE ENLIVE CHOC 237 ML CAN PO SCH ×3 (08:00→17:11)
[2020-04-15] MEDS: FERROUS SULFATE (325 MG) 325 MG/TAB TABLET PO SCH (08:57)
[2020-04-15] MEDS: LEVETIRACETAM (250 MG) 250 MG TABLET PO SCH ×2 (08:57→20:19)
[2020-04-15] MEDS: ASCORBIC ACID 500 MG TABLET PO SCH (08:58)
[2020-04-15] MEDS: FAMOTIDINE (20 MG) 20 MG TABLET PO SCH (08:58)
--- NOTE | 2020-04-15 09:01 | NUR ---
RN NOTES RECEIVED CALL FROM OR NURSE GUAN, PATIENT IS NPO PRIOR SURGERY. CONSENT FORMS SIGNED AND IN THE CHART. WILL SOUR BLEACHING PLEATER PATIENT IN 15 MINS PER OR NURSE.
[2020-04-15] MEDS ORDERED: LIDOCAINE 1% INJ 50 ML MDV IJ ONE (09:03)
[2020-04-15] MEDS ORDERED: BUPIVACAINE MPF 0.5% W/EPI INJ 30 ML VIAL ONE (09:03)
[2020-04-15] MEDS: SILVER SULFADIAZINE CREAM 25 GM TUBE TP SCH ×2 (09:06→16:02)
--- NOTE | 2020-04-15 09:21 | NUR ---
RN NOTES PATIENT WAS PICKED UP FOR SURGERY VIA [facility], ACCOMPANIED BY 2 OR TECHS.
[2020-04-15] MEDS ORDERED: MIDAZOLAM HCL 2 MG/2ML VIAL ONE (09:30)
--- NOTE | 2020-04-15 09:45 | NUR ---
RN NOTES PATIENT RETURNED TO UNIT. PER OR TECH, DR. ELIZABETH HAD EMERGENCY SURGERY AND WILL SEE THE PATIENT AT 1230, CONTINUE NPO FOR PATIENT UNTIL THEN. WILL CONTINUE TO MONITOR.
[2020-04-15 09:54] LABS: EOSINOPHILS % (MANUAL) 7 % (0-4); LYMPHOCYTES % (MANUAL) 16 % (16-48); MONOCYTES % (MANUAL) 8 % (0-11.0); NEUTROPHILS % (MANUAL) 69 (42-76)
--- NOTE | 2020-04-15 12:27 | NUR ---
RN NOTES PATIENT PICKED UP FO SURGERY VIA GURNEY, ACCOMPANIED BY 2 OR TECHS.
--- NOTE | 2020-04-15 14:20 | NUR ---
RN NOTES PATIENT RETURNED TO UNIT VIA GURNEY ACCOMPANIED BY 2 OR TECHS, S/P RIGHT HIP ABSCESS I&D. DRESSING ON RIGHT HIP C/D/I. PATIENT IS AWAKE AND VERBALLY RESPONSIVE, A/O X4, NO COMPLAINT OF PAIN AT THIS TIME. PATIENT ON O2 AT 2L/MIN VIA NC, NO SOB NOTED, SPO2 98%. VS CHECKED AND RECORDED. POST-OP ORDERS FROM DR. ELIZABETH NOTED AND CARRIED OUT. WILL CONTINUE TO MONITOR.
[2020-04-15] MEDS: HYDROCODONE/APAP 5/325MG TABLET PO PRN (18:03)
--- NOTE | 2020-04-15 18:58 | NUR ---
MS RN CLOSING NOTES PATIENT IS AWAKE AND VERBALLY RESPONSIVE, A/O X4, ABLE TO MAKE NEEDS KNOWN. BREATHING EVEN AND UNLABORED. S/P RIGHT HIP ABSCESS I&D, NO COMPLICATION NOTED. DRESSING C/D/I. PAIN MED ADMINISTERED INDICATED, NO COMPLAINT OF PAIN AT THIS TIME. MIDLINE ON SOTERO #18 INTACT AND PATENT, NS INFUSING AT 75ML/HR. ABLE TO USE BEDSIDE COMMODE SAFELY. SAFETY PRECAUTIONS MAINTAINED: BED LOCKED AND ON LOWEST POSITION, SR UP X2, CALL LIGHT W/IN REACH. WILL ENDORSE TO DRY CLEANER APPRENTICE RN FOR DYLON.
--- NOTE | 2020-04-15 19:30 | NUR ---
MS RN OPENING NOTE RECEIVED PATIENT IN BED. A/OX3-4. TOLERATING ROOM AIR.RESPIRATIONS ARE EVEN AND UNLABORED. NO S/S SOB NOTED. C/O PAIN IN RIGHT HIP 03/18. INFORMED HER SHE JUST RECEIVED NORCO, WILL NEED TO SEE VITAL SIGNS AND IF A PAIN MEDICATION IS AVAILABLE. IN NO APPARENT DISTRESS. IV ACCESS IN SOTERO MIDLINE RUNNING NS@75ML/HR. BED IS LOW AND LOCKED, HOB ELEVATED IN SEMI FOWLERS, SIDE RAILS UP X2. DARRIUS LIGHT WITHIN REACH. WILL CONTINUE TO MONITOR.
[2020-04-15] MEDS: CEFTRIAXONE 1 G in IV D5W 50 ML IV SCH (20:19)
[2020-04-15] MEDS: PANTOPRAZOLE 40 MG TABLET.DR PO SCH (20:19)
--- NOTE | 2020-04-15 20:27 | NUR ---
MS RN NOTE ADMINISTERED PRN DILAUDID 2MG FOR PAIN 9/10 IN RIGHT HIP. WILL CONTINUE TO MONITOR.
[2020-04-15] MEDS: DOCUSATE SODIUM 100 MG CAPSULE PO SCH (21:08)
--- NOTE | 2020-04-15 21:20 | NUR ---
MS RN NOTES RECEIVED REPORT FROM YASMANY,PATIENT ON BED A/O X3-4,RIGHT HIP DRESSING INTACT,S/P INCISION AND DRAINAGE BY DR ELIZABETH.IVF NS AT 75ML/HR RATE INFUSING WELL ON SOTERO MIDLINE.PAIN TOLERABLE AT THE MOMENT.CALL LIGHT IN REACH,NEEDS ANTICIPATED.
--- NOTE | 2020-04-15 21:20 | NUR ---
MS RN NOTE - DYLON TRANSFER OF CARE GIVEN TO STEFANI PEREZ.
[2020-04-16] MEDS: IV NS 0.9% 1,000 ML IV PRN ×2 (01:39→17:48)
[2020-04-16] MEDS: HYDROMORPHONE INJ 2 MG/ML DISP.SYRIN IV PRN ×5 (01:45→21:06)
--- NOTE | 2020-04-16 01:45 | NUR ---
MS RN NOTES PAIN MANAGEMENT AWAKE,C/O PAIN ON THE RIGHT HIP 8/10 ON PAIN SCALE.MEDICATED WITH DILAUDID 2MG IVP ORDERED.
--- NOTE | 2020-04-16 03:00 | NUR ---
MS RN NOTES SOUND ASLEEP,KEPT WARM AND COMFORTABLE
[2020-04-16] MEDS: VANCOMYCIN 1 GM in IV D5W 250ml IV SCH ×2 (05:51→17:50)
--- NOTE | 2020-04-16 05:59 | NUR ---
MS RN NOTES PAIN MANAGEMENT AWAKE,C/O RIGHT HIP PAIN 8/10 ON PAIN SCALE.DILAUDID 2MG IVP GIVEN ORDERED FOR SEVERE PAIN
--- NOTE | 2020-04-16 06:48 | NUR ---
MS RN NOTES FAIRLY RESTED AT NIGHT.PAIN MANAGEMENT EFFECTIVE.RIGHT HIP SURGICAL SITE WITH DRESSING INTACT AND DRY.NO ACTIVE BLEEDING NOTED.IN NO ACUTE DISTRESS.POSSIBLE D/C WHEN MEDICALLY STABLE AFTER THE PROCEDURE.ENDORSED.
--- NOTE | 2020-04-16 07:15 | NUR ---
MS RN OPENING NOTES BEDSIDE ENDORSEMENT DONE. PATIENT IS IN BED SLEEPING BUT AROUSABLE VIA VERBAL AND TACTILE SENSATIONS, A/O X3-4, ABLE TO MAKE NEEDS KNOWN. BREATHING EVEN AND UNLABORED, TOLERATING ROOM AIR, NO ACUTE DISTRESS. NO COMPLAINT OF PAIN AT THIS TIME; PAIN MED GIVEN BY PREVIOUS SHIFT RN. SOTERO MIDLINE #18 INTACT AND PATENT. S/P R HIP ABSCESS I&D, DRESSING C/D/I. SAFETY PRECAUTIONS IN PLACE: BED LOCKED AND ON LOWEST POSITION, SR UP X2, CALL LIGHT W/IN REACH. WILL CONTINUE TO MONITOR.
[2020-04-16] MEDS: ENSURE ENLIVE CHOC 237 ML CAN PO SCH ×3 (07:27→17:46)
[2020-04-16 08:00] VITALS: BP 115/69
--- NOTE | 2020-04-16 09:00 | NUR ---
WOUND CARE CONSULT: PT PRESENTS WITH RT HIP SURGICAL WOUND. RECOMMENDATIONS MADE FOR WOUND CARE BASED ON SURGEON'S ORDER. DISCUSSED WITH NURSING STAFF. PHOTO TAKEN OF WOUND. IN AGREEMENT WITH PLAN OF CARE. Addendum: 04/16/20 at 0902 by PILO BOATENG WNDNU Amended: Links added.
[2020-04-16] MEDS: FERROUS SULFATE (325 MG) 325 MG/TAB TABLET PO SCH (09:19)
[2020-04-16] MEDS: ASCORBIC ACID 500 MG TABLET PO SCH (09:19)
[2020-04-16] MEDS: LEVETIRACETAM (250 MG) 250 MG TABLET PO SCH ×2 (09:19→20:10)
[2020-04-16] MEDS: FAMOTIDINE (20 MG) 20 MG TABLET PO SCH (09:19)
[2020-04-16] MEDS: SILVER SULFADIAZINE CREAM 25 GM TUBE TP SCH ×2 (09:21→17:50)
[2020-04-16] MEDS: DAKINS QUARTER STRENGTH (0.125%) 480 ML BOTTLE TOP SCH (09:46)
[2020-04-16 13:36] LABS: BASOPHILS % (AUTO) 0.8 % (0.0-2.0); EOSINOPHILS % (AUTO) 5.5 % (0.0-6.0); HEMATOCRIT 25 % (33-45); HEMOGLOBIN 7.7 g/dL (11.5-14.8); LYMPHOCYTES # (AUTO) 1.6 /CMM (0.8-4.8); LYMPHOCYTES % (AUTO) 32.6 % (20.0-44.0); MEAN CORPUSCULAR HGB CONC 30 g/dl (31.0-36.0); MEAN CORPUSCULAR VOLUME 73 fL (82-100); MONOCYTES # (AUTO) 0.3 /CMM (0.1-1.30); MONOCYTES % (AUTO) 6.7 % (2.0-12.0); NEUTROPHILS # (AUTO) 2.6 /CMM (1.8-8.9); NEUTROPHILS % (AUTO) 54.4 % (43.0-81.0); PLATELET COUNT (AUTO) 404 /CMM (150-450); RED BLOOD CELL COUNT(AUTO) 3.48 MIL/uL (4.0-5.2); WHITE BLOOD COUNT (AUTO) 4.9 K/uL (4.3-11.0)
[2020-04-16] MEDS: HYDROCODONE/APAP 10/325MG TABLET PO PRN (13:41)
[2020-04-16 14:21] LABS: CALCIUM, SERUM 7.6 mg/dL (8.5-10.1); CREATININE 0.7 mg/dL (0.6-1.3); POTASSIUM 4.2 mmol/L (3.5-5.1)
[2020-04-16 16:00] VITALS: BP 127/77
--- NOTE | 2020-04-16 18:49 | NUR ---
MS RN CLOSING NOTES PATIENT IS IN BED, AWAKE AND VERBALLY RESPONSIVE, A/O X3-4, ABLE TO MAKE NEEDS KNOWN. BREATHING EVEN AND UNLABORED ON ROOM AIR. NO COMPLAINT OF PAIN NOR DISTRESS AT THIS TIME. SOTERO MIDLINE #18 INTACT AND PATENT, IVF INFUSING ORDERED. TREATMENT DONE ON R HIP WOUND, DRESSING C/D/I. SAFETY PRECAUTIONS MAINTAINED: BED LOCKED AND ON LOWEST POSITION, SR UP X2, CALL LIGHT W/IN REACH. WILL ENDORSE TO ARBORICULTURIST RN FOR DYLON.
[2020-04-16 20:00] VITALS: BP 108/68
[2020-04-16] MEDS: PANTOPRAZOLE 40 MG TABLET.DR PO SCH (20:09)
[2020-04-16] MEDS: CEFTRIAXONE 1 G in IV D5W 50 ML IV SCH (20:09)
[2020-04-16] MEDS: DOCUSATE SODIUM 100 MG CAPSULE PO SCH (20:10)
--- NOTE | 2020-04-17 00:38 | NUR ---
PATIENT REMOVED THE SCD'S.
[2020-04-17] MEDS: HYDROMORPHONE INJ 2 MG/ML DISP.SYRIN IV PRN ×3 (01:17→10:21)
--- NOTE | 2020-04-17 01:31 | NUR ---
PLACED PATIENT ON O2 AT 3L/MIN.
[2020-04-17] MEDS: VANCOMYCIN 1 GM in IV D5W 250ml IV SCH (05:56)
--- NOTE | 2020-04-17 06:00 | NUR ---
MS RN CLOSING NOTES: PATIENT IN BED, AWAKE. A/O X4. NO S/S OF DISTRESS NOTED. CALL LIGHT WITHIN REACH. BED IN LOWEST AND LOCKED POSITION.
--- NOTE | 2020-04-17 07:30 | NUR ---
MS RN NOTES RECEIVED PT IN BED, ASLEEP, EASILY AROUSED, A/O X3-4. PT TOLERATING RA, WITH NO ACUTE RESPIRATORY DISTRESS NOTED. PT DENIES PAIN AT THIS TIME. PT DENIES CONCERNS AT THIS TIME WELL. ENCOURAGED WORKING WITH PHYSICAL THERAPIST. IVF NS 75 ML/HR, INTACT AND OPERATIONAL. PT KEPT COMFORTABLE. CALL LIGHT KEPT WITHIN REACH. WILL CONTINUE PLAN OF CARE.
[2020-04-17 08:00] VITALS: BP 107/72
[2020-04-17] MEDS: ENSURE ENLIVE CHOC 237 ML CAN PO SCH ×2 (08:31→12:34)
[2020-04-17] MEDS: FAMOTIDINE (20 MG) 20 MG TABLET PO SCH (08:34)
[2020-04-17] MEDS: ASCORBIC ACID 500 MG TABLET PO SCH (08:34)
[2020-04-17] MEDS: FERROUS SULFATE (325 MG) 325 MG/TAB TABLET PO SCH (08:34)
[2020-04-17] MEDS: LEVETIRACETAM (250 MG) 250 MG TABLET PO SCH (08:34)
[2020-04-17] MEDS: DAKINS QUARTER STRENGTH (0.125%) 480 ML BOTTLE TOP SCH (08:35)
[2020-04-17] MEDS: SILVER SULFADIAZINE CREAM 25 GM TUBE TP SCH (08:36)
[2020-04-17] MEDS ORDERED: SULF1TAB48 PO (10:32)
[2020-04-17] MEDS ORDERED: SODI473S8 TOP (10:32)
[2020-04-17] MEDS ORDERED: SILV20CR13 TP (10:35)
[2020-04-17] MEDS ORDERED: INFLUENZA VACCINE 2020-21 0.5 ML DISP.SYRIN IM ONE (13:00)
--- NOTE | 2020-04-17 13:30 | NUR ---
MS RN NOTES FLU VACCINE GIVEN TO LEFT DALTOIN IM, PER PT'S REQUEST BEFORE BEING DISCHARGE.
[2020-04-17 16:00] VITALS: BP 146/96
--- NOTE | 2020-04-17 16:50 | NUR ---
MS RN NOTES PT GOING HOME/OWN RV, BLADE GROOVER BY FRIEND/EMMA. PT A/O X3-4, AMBULATORY. PT TOLERATING RA, WITH NO ACUTE RESPIRATORY DISTRESS NOTED. PT DENIES PAIN AT THE TIME OF DISCHARGE. PT REVIEWED AND SIGNED DISCHARGE INSTRUCTIONS AND INVENTORY LIST. ALL BELONGINGS WITH THE PATIENT. SKIN ASSESSED, PICTURES TAKEN. PT INSTRUCTED HOW TO CLEAN WOUND, TREATMENTS AND SUPPLIES PROVIDED. PRESCRIPTIONS FOR ANTIBIOTIC GIVEN TO THE PT. ALL NEEDS AND CARE ATTENDED. VS STABLE. HOSPITALIST/CC AND CHARGE NURSE AWARE OF DISCHARGE. PIV/MIDLINE TO SOTERO, REMOVED. PT ESCORTED TO THE LOBBY. FRIEND/EMMA IN THE LOBBY FOR BLADE GROOVER. PT LEFT AT 1630.
== END 2020-04-17 16:30 | disposition home or self-care (01) | DRG 364 ==
LOC: ER 17:01 → MED 20:28
PROVIDERS: ADMIT Nurse Practitioner Acute Care; ATTEND Nurse Practitioner Acute Care
PROC: 05HY33Z Insertion of Infusion Device into Upper Vein, Percutaneous Approach (ICD-10-PCS; principal; 2020-04-11)
PROC: 0K9N0ZZ Drainage of Right Hip Muscle, Open Approach (ICD-10-PCS; 2020-04-13)
DX: L03.115 Cellulitis of right lower limb (principal); E87.6 Hypokalemia; E43 Unspecified severe protein-calorie malnutrition; D50.9 Iron deficiency anemia, unspecified; I10 Essential (primary) hypertension; Z88.6 Allergy status to analgesic agent; Z79.899 Other long term (current) drug therapy; F11.10 Opioid abuse, uncomplicated; E87.2 Acidosis; Z91.14 Patient's other noncompliance with medication regimen; E83.42 Hypomagnesemia; L02.415 Cutaneous abscess of right lower limb; N39.0 Urinary tract infection, site not specified
CPT/HCPCS: 36410; 36415; 73610-TC; 73630-TC; 73700-TC; 73701-TC; 80048-TC; 80053-TC; 80076-TC; 80202-TC; 80305; 81000-TC; 83605-TC; 83735-TC; 84100-TC; 84703-TC; 85025-TC; 85730-TC; 86360; 86850-TC; 87040-TC; 87070-TC; 87081-TC; 87086-TC; 93971-TC; A4217; A6253; A6403; C9113; C9803-CS; G0378; J0696; J1170; J2250; J2270; J2405; J2704; J2765; J2916; J3370; J3490; J7030; J7042; J7050; J7060; Q2036; Q9967